=== PATIENT | female | born 2000 | race Caucasian/White ===

== ENCOUNTER 2022-02-04 10:13 | Inpatient (IN) | payer BC ==
[~2022-02-04] VITALS: Ht 162.6 cm; Wt 90.2 kg
[2022-02-04 10:00] VITALS: BP 111/55
[2022-02-04] MEDS ORDERED: METR375C PO (10:47)
[2022-02-04] MEDS ORDERED: AMOX1TAB58 PO (10:47)
--- NOTE | 2022-02-04 12:15 | PDOC2 ---
CARDIOLOGY CONSULT NOTE DATE OF SERVICE: DATE: 02/04/22 TIME: 12:06 CHIEF COMPLAINT: Palpitation HPI: Pleasant 21-year-old woman without any significant past medical history who presents to the hospital in the setting of persistent palpitations. She was diagnosed with SVT in the emergency room and given adenosine which improved her symptoms but she had persistent SVT requiring transfer to the hospital [facility]. Her laboratory studies were also mildly abnormal with an elevated high-sensitivity troponin of 713. The patient currently denies any chest pain or dyspnea. She has no syncope. No recent changes to any social issues. Of note, the patient recently started a keto diet approximately 6 weeks ago and lost 11 pounds. She usually is pretty good on staying hydrated. The mother of the patient tells us that she has been having palpitations since the age of 13 and previously was told that she was just dehydrated. PMHX: none SOCHX: Occ marijuana use. No alcohol, tob or illicit drug use. FAMHX: Mother has PAC or PVC's. No hx of SCD CURRENT MEDS: None ALLERGIES: Allergies Coded Allergies Type Severity Reaction Last Updated Verified No Known Drug Allergies 02/04/22 No ROS: Negative for 08/04 systems reviewed unless noted above in HPI. PHYSICAL EXAM: Vital Signs/I&O: Vital Signs Date Time Temp Pulse Resp B/P (MAP) Pulse Ox O2 Delivery O2 Flow Rate FiO2 02/04/22 10:00 97.7 195 22 111/55 (73) 99 Room Air 97.7 Physical Exam: GEN.: No apparent distress. Alert and oriented. HEENT: Head is normocephalic, atraumatic NECK: Supple. LUNGS: Clear to auscultation. HEART: RRR, S1, S2 present. Peripheral pulses intact ABDOMEN: Soft, nontender. Positive bowel sounds. EXTREMITIES: Without any cyanosis. NEUROLOGIC: Normal speech, normal tone PSYCHIATRIC: Normal affect, normal mood. SKIN: No ulcerations DIAGNOSTIC TESTING: EKG demonstrates narrow complex SVT with diffuse ST segment depression. 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 Elevated troponin likely due to Type 2 NSTEMI PLAN: 1. Start Metoprolol, Flecainide, titrate of diltiazem. 2. Check echo 3. Outpt referral to EP for consideration of ablation. 4. Advised patient to may be less stringent Keto diet at this time until SVT improves. Supportive care. ERIC SOTVALL MD Feb 04, 2022 12:15
--- NOTE | 2022-02-04 12:28 | PDOC1 ---
History and Physical Date of Service: DOS: DATE: 02/04/22 TIME: 12:20 Chief Complaint: Chief Complain: Fast heart rate History of Present Illness: HPI: 21-year-old female with no significant past medical history who presents with rapid heart rate that started last night. Patient states she was sleeping at and around 2:00 and when she was awoken by a rapid heart rate. She does denies any chest pain, fevers, shortness of breath, abdominal pain or diarrhea. Patient was evaluated in the ED and she was found to be in SVT. She was given adenosine which improved her symptoms but she had persistent elevated heart rate. She was also given metoprolol and another round of adenosine before she was decided to be transferred over for further evaluation with cardiology. She also had a troponin level of 713. Patient does have a history of marijuana use and recent weight loss that was intentional by starting a keto genic diet. Past Medical/Surgical History: PMH/PSH: No significant past medical or surgical history Allergies: Allergies: Coded Allergies: No Known Drug Allergies (Unverified , 02/04/22) Family History: Family History: Mother with history of arrhythmias Social History: Social History: Occasional marijuana use. Denies any alcohol or drug abuse Current Medications: Current Medications Current Medications Metoprolol Tartrate (Lopressor) 25 mg BID PO ; Start 02/04/22 at 12:15 Flecainide Acetate (Tambocor) 50 mg Q12HR PO ; Start 02/04/22 at 12:15 Active Scripts Active Reported Augmentin 500-125 Tablet (Amoxicillin/Potassium Clav) 1 Each Tablet 1 Tab PO BID 10 Days Flagyl (Metronidazole) 375 Mg Capsule 375 Mg PO BID ROS: Review of Systems Review of System REVIEW OF SYSTEMS: GENERAL: Denies weakness SKIN: No bruising, hair changes or rashes. EYES: No blurred, double or loss of vision. NOSE AND THROAT: No history of nosebleeds, hoarseness or sore throat. HEART: Positive for palpitations LUNGS: Denies cough, hemoptysis, wheezing or shortness of breath. GASTROINTESTINAL: Denies changes in appetite, nausea, vomiting, diarrhea or constipation. GENITOURINARY: No history of frequency, urgency, hesitancy or nocturia. NEUROLOGIC: Denies history of numbness, tingling, or tremor. PSYCHIATRIC: No history of panic, anxiety or depression. ENDOCRINE: No history of heat or cold intolerance, polyuria or polydipsia. EXTREMITIES: Denies joint pain, pain on walking or stiffness. Physical Exam: Vital Signs: Vital Signs Date Time Temp Pulse Resp B/P (MAP) Pulse Ox O2 Delivery O2 Flow Rate FiO2 02/04/22 10:00 97.7 195 22 111/55 (73) 99 Room Air 97.7 Physcial Exam: General: Well developed, well nourished, no acute distress, well appearing HEENT: Pupils equally round and reactive to light, EOMI, no discharge, normal conjunctiva Neck: Supple, no nuchal rigidity, no JVD, trachea midline, no tenderness Cardiac: Tachycardic, no murmurs, no gallops, no rubs Chest/Lungs: CTAB, no wheeze, no rhonchi, no crackles Abdomen: soft, non-distended, no guarding, no peritoneal signs, non-tender Back: No tenderness Extremities: no edema, pulses intact, non-tender,capillary refill <3 sec b ilateral upper and lower extremities, Neuro: Alert and oriented x 4, no focal deficits, normal speech Labs: Labs: [facility] lab review significant for troponins 713, hemoglobin of 15.7, WBC of 15.9, CO2 of C of 20, anion gap was 17, mildly elevated liver enzymes AST of 48, ALT of 90, positive for cannabinoids Images: Images PROCEDURE: CHEST AP ONLY Study: XR CHEST 1V Indication: Supraventricular tachycardia. Comparison: None. Findings: The cardiomediastinal silhouette and anupam are within normal limits. No localized airspace opacity, pleural effusion or pneumothorax. Impression: No acute radiographic abnormality of the chest. Assessment/Plan Assessment/Plan Acute SVT Elevated troponins likely due to type II demand ischemia Cannabinoid positivity Erythrocytosis likely due to dehydration Admit to hospitalist service for further management Cardiology consult for SVT Continue telemetry monitoring Continue IV fluids Regular diet SCD and ambulation for DVT prophylaxis CODE STATUS full Discussed with RN and SW Disposition inpatient management as above DPOA: Mother Justifications for Admission Other Justification MAGDY CHÁVEZ MD Feb 04, 2022 12:28
[2022-02-04] MEDS ORDERED: ACETAMINOPHEN 325 MG TABLET. PO PRN (12:30)
[2022-02-04] MEDS ORDERED: SENNOSIDES 8.6 MG TABLET PO PRN (12:30)
[2022-02-04] MEDS ORDERED: diphenhydrAMINE 50 MG/ML VIAL IVP PRN (12:30)
[2022-02-04] MEDS ORDERED: diphenhydrAMINE HCL 25 MG CAPSULE PO PRN ×2 (12:30)
[2022-02-04] MEDS ORDERED: ZOLPIDEM 5 MG TABLET. PO PRN (12:30)
[2022-02-04] MEDS ORDERED: ONDANSETRON PF 4 MG/2 ML VIAL. IVP PRN (12:30)
[2022-02-04] MEDS ORDERED: LORazepam 0.5 MG TABLET PO PRN (12:30)
[2022-02-04] MEDS ORDERED: PROCHLORPERAZINE 10 MG/2 ML VIAL. IV PRN (12:30)
[2022-02-04] MEDS ORDERED: DEXTROSE 50% 25 GM / 50ML DISP.SYRIN. IV PRN (12:30)
[2022-02-04] MEDS ORDERED: DOCUSATE SODIUM 100 MG CAPSULE. PO PRN (12:30)
[2022-02-04] MEDS: FLECAINIDE ACETATE 50 MG TABLET. PO SCH ×2 (12:33→20:40)
[2022-02-04] MEDS: METOPROLOL TART IMMED RELEASE 25 MG TABLET. PO SCH ×2 (12:33→20:39)
[2022-02-04] MEDS: IV NORMAL SALINE 1000ML BAG 1,000 ML IV SCH (15:49)
--- NOTE | 2022-02-04 18:49 | EKG ---
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
[2022-02-04 19:25] VITALS: BP 109/52
[2022-02-04 22:27] VITALS: BP 104/61
[2022-02-05] MEDS: IV NORMAL SALINE 1000ML BAG 1,000 ML IV SCH ×2 (02:34→08:38)
[2022-02-05 03:15] VITALS: BP 112/61
[2022-02-05 04:43] LABS: BASO # 0.1 x10^3/uL (0.0-0.2); BASO % 1 % (0-3); EOS # 0.3 x10^3/uL (0.0-0.7); EOS % 3 % (0-3); HEMATOCRIT 38.3 % (36.0-47.0); HEMOGLOBIN 12.9 g/dL (12.0-15.5); LYMPH # 2.9 x10^3/uL (1.0-4.8); LYMPH % 34 % (24-48); MEAN CORPUSCULAR HEMOGLOBIN 30 pg (25-35); MEAN CORPUSCULAR HGB CONC 34 g/dL (31-37); MEAN CORPUSCULAR VOLUME 90 fL (79-100); MONO # 0.7 x10^3/uL (0.0-1.1); MONO % 9 % (0-9); NEUT # 4.5 x10^3/uL (1.8-7.7); NEUT % 53 % (31-73); PLATELET COUNT 235 x10^3/uL (140-400); RED BLOOD COUNT 4.27 x10^6/uL (3.50-5.40); RED CELL DISTRIBUTION WIDTH 14.4 % (11.5-14.5); WHITE BLOOD COUNT 8.4 x10^3/uL (4.0-11.0)
[2022-02-05 05:26] LABS: CALCIUM 8.2 mg/dL (8.5-10.1); CREATININE 0.6 mg/dL (0.6-1.0); MAGNESIUM 1.8 mg/dL (1.8-2.4); PHOSPHORUS 3.3 mg/dL (2.6-4.7); POTASSIUM 3.5 mmol/L (3.5-5.1)
[2022-02-05 06:12] VITALS: BP 109/62
[2022-02-05] MEDS: FLECAINIDE ACETATE 50 MG TABLET. PO SCH (08:37)
[2022-02-05] MEDS: METOPROLOL TART IMMED RELEASE 25 MG TABLET. PO SCH (08:37)
[2022-02-05 11:00] VITALS: BP 118/66
--- NOTE | 2022-02-05 14:07 | PDOC ---
CARDIOLOGY PROGRESS NOTE SUBJECTIVE: No acute events overnight. Patient had some IV infiltration therefore some right arm swelling but no chest pain, palpitations or dyspnea. She was ambulating in the hallway today without any problems OBJECTIVE: Vital Signs/I&O: Vital Signs Date Time Temp Pulse Resp B/P (MAP) Pulse Ox O2 Delivery O2 Flow Rate FiO2 02/05/22 11:00 98.8 56 20 118/66 (83) 98 Room Air 98.8 I & O 02/04/22 02/04/22 02/05/22 14:59 22:59 06:59 Intake Total 400 ml 0 ml 100 ml Balance 400 ml 0 ml 100 ml Objective: GEN.: No apparent distress. Alert and oriented. HEENT: Head is normocephalic, atraumatic NECK: Supple. LUNGS: Clear to auscultation. HEART: RRR, S1, S2 present. Peripheral pulses intact ABDOMEN: Soft, nontender. Positive bowel sounds. EXTREMITIES: Without any cyanosis. NEUROLOGIC: Normal speech, normal tone PSYCHIATRIC: Normal affect, normal mood. SKIN: No ulcerations CURRENT MEDICATIONS: Metoprolol 12.5 mg p.o. twice daily Flecainide 50 mg p.o. twice daily DIAGNOSTIC TESTING: Telemetry is unremarkable Labs: Laboratory Tests 02/05/22 04:00 Laboratory Tests Test 02/05/22 04:00 White Blood Count 8.4 x10^3/uL (4.0-11.0) Red Blood Count 4.27 x10^6/uL (3.50-5.40) Hemoglobin 12.9 g/dL (12.0-15.5) Hematocrit 38.3 % (36.0-47.0) Mean Corpuscular Volume 90 fL (79-100) Mean Corpuscular Hemoglobin 30 pg (25-35) Mean Corpuscular Hemoglobin Concent 34 g/dL (31-37) Red Cell Distribution Width 14.4 % (11.5-14.5) Platelet Count 235 x10^3/uL (140-400) Neutrophils (%) (Auto) 53 % (31-73) Lymphocytes (%) (Auto) 34 % (24-48) Monocytes (%) (Auto) 9 % (0-9) Eosinophils (%) (Auto) 3 % (0-3) Basophils (%) (Auto) 1 % (0-3) Neutrophils # (Auto) 4.5 x10^3/uL (1.8-7.7) Lymphocytes # (Auto) 2.9 x10^3/uL (1.0-4.8) Monocytes # (Auto) 0.7 x10^3/uL (0.0-1.1) Eosinophils # (Auto) 0.3 x10^3/uL (0.0-0.7) Basophils # (Auto) 0.1 x10^3/uL (0.0-0.2) Sodium Level 143 mmol/L (136-145) Potassium Level 3.5 mmol/L (3.5-5.1) Chloride Level 109 mmol/L (98-107) H Carbon Dioxide Level 22 mmol/L (21-32) Anion Gap 12 (6-14) Blood Urea Nitrogen 9 mg/dL (7-20) Creatinine 0.6 mg/dL (0.6-1.0) Estimated GFR (Cockcroft-Gault) 125.0 Glucose Level 84 mg/dL (70-99) Calcium Level 8.2 mg/dL (8.5-10.1) L Phosphorus Level 3.3 mg/dL (2.6-4.7) ASSESSMENT: 1. SVT, probable AVNRT PLAN: 1. Continue metoprolol and flecainide. 2. Limited bedside echocardiogram does not demonstrate any significant structural abnormalities. She will obtain a full echocardiogram in the next 1 to 2 days and will follow-up with [facility] EP service for consideration of ablation therapy. Supportive care from a cardiac standpoint. Okay to discharge later this evening. Justicifation of Admission Dx: Justifications for Admission: Justification of Admission Dx: N/A ERIC STOVALL MD Feb 05, 2022 14:07
[2022-02-05 15:00] VITALS: BP 112/54
[2022-02-05] MEDS ORDERED: METO25TA4 PO (15:44)
[2022-02-05] MEDS ORDERED: FLEC50TA PO (15:44)
--- NOTE | 2022-02-05 15:45 | DISCH ---
DISCHARGE INSTRUCTIONS Condition on Discharge Condition on Discharge: Stable Activity After Discharge Activity Instructions for Disc: Activity as tolerated Exercise Instruction after Dis: Walk 30 min, 5 x per week Driving Instructions after Dis: Do not drive today Weight Bearing Status after Di: As tolerated Diet after Discharge Diet after Discharge: Cardiac Follow-Up Follow up with: PCP within 2 weeks of discharge Follow Up With: Echocardiogram within 1 to 2 days and an EPS for possible ablation MAGDY CHÁVEZ MD Feb 05, 2022 15:45
--- NOTE | 2022-02-05 16:55 | NUR ---
Pt discharged around 1615. Pt instructed to follow up with [facility]. Vitals stable upon discharge, all belongings taken with pt, no complications.
--- NOTE | 2022-02-13 13:17 | PDOC3 ---
[facility]-Discharge Summary Date of Admission: Date of Admission: Feb 04, 2022 Date of Discharge: Date of Discharge: Feb 05, 2022 Discharge Diagnosis: Discharge Diagnosis: Acute SVT Elevated troponins likely due to type II demand ischemia Cannabinoid positivity Erythrocytosis likely due to dehydration Consults: Consults: per cardiology: PLAN: 1. Continue metoprolol and flecainide. 2. Limited bedside echocardiogram does not demonstrate any significant structural abnormalities. She will obtain a full echocardiogram in the next 1 to 2 days and will follow-up with [facility] EP service for consideration of ablation therapy. Supportive care from a cardiac standpoint. Okay to discharge later this evening. Hospital Course: Hospital Course: 21-year-old female with no significant past medical history who presents with rapid heart rate that started last night. Patient states she was sleeping at and around 2:00 and when she was awoken by a rapid heart rate. She does denies any chest pain, fevers, shortness of breath, abdominal pain or diarrhea. Patient was evaluated in the ED and she was found to be in SVT. She was given adenosine which improved her symptoms but she had persistent elevated heart rate. She was also given metoprolol and another round of adenosine before she was decided to be transferred over for further evaluation with cardiology. She also had a troponin level of 713. Patient does have a history of marijuana use and recent weight loss that was intentional by starting a keto genic diet. By day of discharge, she was clinically stable and improved. See cardiology recommendations above. Disposition: Disposition/Orders: D/C to Home Activity: Activity: Resume previous activity Diet: Diet: Regular Medications: Home Meds Active Scripts Metoprolol Tartrate (METOPROLOL TARTRATE) 25 Mg Tablet, 25 MG PO BID for SVT for 30 Days, #60 TAB Prov:MAGDY CHÁVEZ MD 02/05/22 Flecainide Acetate (FLECAINIDE ACETATE) 50 Mg Tablet, 50 MG PO Q12HR for SVT for 30 Days, #60 TAB 2 Refills Prov:MAGDY CHÁVEZ MD 02/05/22 Scheduled Flecainide Acetate (Flecainide Acetate), 50 MG PO Q12HR Metoprolol Tartrate (Metoprolol Tartrate), 25 MG PO BID Total Time: Total Time: Total time spent was 32 minutes in preparing scripts and discharge planning with SW and RN. Patient seen and examined on day of Discharge. Justicifation of Admission Dx: Justifications for Admission: Justification of Admission Dx: N/A MAGDY CHÁVEZ MD Feb 13, 2022 13:17
== END 2022-02-05 16:15 | disposition home or self-care (01) | DRG 310 ==
LOC: 6 SOUTH 10:13
PROVIDERS: ADMIT Internal Medicine; ATTEND Internal Medicine
DX: I47.1 Supraventricular tachycardia (principal); D75.1 Secondary polycythemia; E86.0 Dehydration; F12.90 Cannabis use, unspecified, uncomplicated
CPT/HCPCS: 36415; 80048; 83735; 84100; 85025; 93005; J7030; G0378